=== PATIENT | male | born 1980 | race Asian ===

== ENCOUNTER 2019-08-16 13:01 | Emergency (ER) | payer MEDICAID, OTHER ==
--- NOTE | 2019-08-16 13:51 | XRAY Report ---
Reason: Chest pain Procedure Date: 08/16/2019 Accession Number: [id number] / [id number] Procedure: XR - Chest 1 View X-Ray CPT Code: 64602 Final Report FULL RESULT: EXAM: CHEST RADIOGRAPHY EXAM DATE: 08/16/2019 01:24 PM. CLINICAL HISTORY: Chest pain. COMPARISON: None. TECHNIQUE: 1 view. FINDINGS: Lungs/Pleura: No focal opacities evident. No pleural effusion. No pneumothorax. Mediastinum: Within exam limitations, the cardiomediastinal contour is normal. Other: None. IMPRESSION: Normal single view chest. RADIA
--- NOTE | 2019-08-16 14:17 | ED Physician Documentation ---
PD HPI CHEST PAIN - Stated complaint Stated Complaint: SOA - Chief complaint Chief Complaint: Resp - History obtained from History obtained from: Patient (This is a very pleasant 38-year-old gentleman who for about the last 6 months has noticed occasionally some difficulty taking a deep breath. He feels like the anterior part of his chest is tight when he takes a deep breath. He is been able to exercise without limitation. He says it is exacerbated when he rotates his shoulders and neck back at the same time. It was somewhat worse today and he felt near syncopal while driving. No chest pain with exercise. No pedal edema or calf pain. No recent travel. No cough, no fevers.) Review of Systems Constitutional: denies: Fever, Chills Ears: reports: Reviewed and negative Cardiac: reports: Chest pain / pressure, Reviewed and negative. denies: Palpitations, Pedal edema, Calf pain Respiratory: reports: Dyspnea. denies: Cough PD PAST MEDICAL HISTORY - Present Medications Home Medications: Ambulatory Orders Medication Instructions Recorded Confirmed No Known Home Medications 08/16/19 08/16/19 - Allergies Allergies/Adverse Reactions: Allergies Allergy/AdvReac Type Severity Reaction Status Date / Time No Known Drug Allergies Allergy Verified 08/16/19 13:08 - Social History Does the pt smoke?: Yes Smoking Status: Current some day smoker Does the pt have substance abuse?: No - Immunizations Immunizations: TDAP >10years/unknown PD ED PE NORMAL - Vitals Vital signs reviewed: Yes - General General: Alert and oriented X 3, No acute distress - HEENT HEENT: PERRL, EOMI - Neck Neck: Supple, no meningeal sign, No bony TTP - Cardiac Cardiac: RRR, No murmur - Respiratory Respiratory: No respiratory distress, Clear bilaterally - Abdomen Abdomen: Non tender - Extremities Extremities: No edema, No calf tenderness / cord - Neuro Neuro: Alert and oriented X 3, Normal speech Results - Vitals Vitals: Vital Signs - 24 hr 08/16/19 13:05 Temperature 36.2 C L Heart Rate 80 Respiratory 18 Rate Blood Pressure 120/77 O2 Saturation 100 Oxygen O2 Source Room air - EKG (time done) 1314 Rate: Rate (enter#) (76) Rhythm: NSR [place]: Normal Intervals: Normal CA QRS: Normal Ischemia: Normal ST segments Computer interpretation: Agree with computer - Labs Labs: Laboratory Tests 08/16/19 08/16/19 14:30 14:30 WBC 6.2 RBC 4.63 L Hgb 13.9 L Hct 40.9 L MCV 88.3 MCH 30.0 MCHC 34.0 RDW 12.5 Plt Count 214 MPV 8.6 Neut # (Auto) 4.4 Lymph # (Auto) 1.2 L Edgar # (Auto) 0.5 Eos # (Auto) 0.0 Baso # (Auto) 0.1 Absolute Nucleated RBC 0.00 Nucleated RBC % 0.0 Sodium 139 Potassium 3.8 Chloride 106 Carbon Dioxide 21 Anion Gap 12.0 BUN 20 Creatinine 0.8 Estimated GFR (MDRD) 109 Glucose 93 Calcium 8.5 Total Bilirubin 1.4 H AST 19 ALT 23 Alkaline Phosphatase 43 Total Protein 7.3 Albumin 4.3 Globulin 3.0 Albumin/Globulin Ratio 1.4 Lipase 31 - Rads (name of study) 1v chest Radiology: EMP read contemporaneously (normal) PD MEDICAL DECISION MAKING - ED course ED course: 38-year-old gentleman with longstanding intermittent chest pain most consistent with costochondritis, it is nonexertional. It is especially consistent with a musculoskeletal etiology given his description of it getting worse if he rotates his shoulders backwards and tilts his head backward. I considered pulmonary embolism in this patient. Clinically the pretest probability of pulmonary embolism is less than 15%. I applied to the PERC rules as follows: The patient's age is under 50, heart rate less than 100, oxygen saturation greater than 94%, the patient does not have a history of DVT or PE. Patient has no recent trauma or surgery. The patient has no hemoptysis. The patient is not on exogenous estrogens. The patient does not have clinical signs suggesting DVT. As such the patient ruled out for pulmonary embolism by PERC criteria. I considered aortic dissection in this patient. The patient has a much more likely alternative diagnosis. The patient has equal radial and pedal pulses and has no neurologic symptoms. Departure - Departure Clinical Impression: Atypical chest pain, Near syncope Condition: Good Record reviewed to determine appropriate education?: Yes Instructions: ED Chest Pain Costochondritis Comments: Ibuprofen as needed for the pain, it will help, return for new or worsening symptoms. As discussed your description is consistent with costochondritis, a benign illness. Follow-up with your doctor within the week, call Sunday for an appointment.
[2019-08-16 14:33] LABS: BASOPHILS # (AUTO) 0.1 10^3/uL (0.0-0.1); EOSINOPHILS % (AUTO) 0.5 %; HGB - HEMOGLOBIN 13.9 g/dL (14.0-18.0); LYMPHOCYTES # (AUTO) 1.2 10^3/uL (1.5-3.5); LYMPHOCYTES % (AUTO) 19.3 %; MEAN CORPUSCULAR VOLUME 88.3 fL (80.0-94.0); MEAN PLATELET VOLUME 8.6 fL (7.4-11.4); MONOCYTES # (AUTO) 0.5 10^3/uL (0.0-1.0); MONOCYTES % (AUTO) 7.8 %; NEUTROPHILS # (AUTO) 4.4 10^3/uL (1.5-6.6); NEUTROPHILS % (AUTO) 71.1 %; PLT - PLATELET COUNT 214 10^3/uL (130-450); RED BLOOD COUNT 4.63 10^6/uL (4.70-6.10); RED CELL DISTRIBUTION WIDTH 12.5 % (12.0-15.0); WHITE BLOOD COUNT 6.2 x10^3/uL (4.8-10.8)
[2019-08-16 14:47] LABS: ALBUMIN 4.3 g/dL (3.2-5.5); ALBUMIN/GLOBULIN RATIO 1.4 (1.0-2.2); BILIRUBIN,TOTAL 1.4 mg/dL (0.2-1.0); CALCIUM 8.5 mg/dL (8.5-10.3); CREATININE 0.8 mg/dL (0.6-1.2); TOTAL PROTEIN 7.3 g/dL (6.7-8.2)
[2019-08-16 15:03] VITALS: BP 120/79
== END 2019-08-16 15:04 | disposition home or self-care (01) ==
LOC: ED 13:01
DX: R07.89 Other chest pain (principal); R55 Syncope and collapse
CPT/HCPCS: 36415; 71045; 80053; 83690; 84484; 85025; 93005; 99284